=== PATIENT | female | born 1965 | race Two or more races ===

== ENCOUNTER 2023-01-02 11:03 | Emergency (ER) | payer MEDICAID ==
[~2023-01-02] VITALS: Ht 157.5 cm; Wt 85.0 kg
[2023-01-02 11:51] LABS: Basophils # (auto) 0 10 ^3/uL (0-0.2); Basophils % (auto) 0.5 % (0.0-2.0); Eosinophils # (auto) 0.1 10 ^3/uL (0-0.8); Eosinophils % (auto) 1.8 % (0.0-7.0); Hematocrit 38.6 % (36.0-46.0); Lymphocytes # (auto) 1.5 10 ^3/uL (0.4-5.4); Lymphocytes % (auto) 23.1 % (10.0-50.0); Mean Corpuscular Hemoglobin 28.5 pg (28.0-32.0); Mean Corpuscular Hgb Conc. 33.7 g/dL (32.0-36.0); Mean Corpuscular Volume 84.4 fL (80.0-100.0); Monocytes # (auto) 0.3 10 ^3/uL (0-1.3); Monocytes % (auto) 5.3 % (0.0-12.0); Neutrophils # (auto) 4.5 10 ^3/uL (1.6-8.6); Neutrophils % (auto) 69.3 % (37.0-80.0); Nucleated Red Blood Cells % 0.1 %; Red Blood Cells 4.57 10^6/uL (4.0-5.20); Red Cell Distribution Width 13.4 % (11.8-14.3); White Blood Cell 6.5 10^3/uL (4.4-10.8)
[2023-01-02 11:53] LABS: Urine Bacteria NONE SEEN /hpf (None Seen); Urine Blood Negative /uL (Negative); Urine Specific Gravity 1.004 (1.001-1.035); Urine WBC <1 /hpf (0 - 5)
[2023-01-02 11:59] LABS: Albumin 3.9 g/dL (3.4-5.0); Potassium 3.4 mmol/L (3.5-5.1)
[2023-01-02] MEDS ORDERED: ONDANSETRON HCL 4 MG/2 ML VIAL IV ONE (12:00)
[2023-01-02] MEDS ORDERED: PANTOPRAZOLE 40 MG/10 ML VIAL INJ IV ONE (12:00)
[2023-01-02] MEDS ORDERED: SODIUM CHLORIDE 0.9% 500 ML IVB ONE (12:00)
[2023-01-02 12:07] LABS: BUN/Creatinine Ratio 17.9 (10.0-20.0); Bilirubin, Total 1.2 mg/dL (0.2-1.0); Total Protein 7.4 g/dL (6.4-8.2)
[2023-01-02 12:26] LABS: INR 0.95 (0.9-1.15); Partial Thromboplastin Time 28.2 sec (24.6-33.4)
[2023-01-02 14:29] VITALS: BP 131/62
[2023-01-02] MEDS ORDERED: PANT40TA2 PO (15:06)
== END 2023-01-02 15:23 | disposition home or self-care (01) ==
LOC: ER 11:03
DX: R10.11 Right upper quadrant pain (principal); I10 Essential (primary) hypertension; Z98.51 Tubal ligation status
CPT/HCPCS: 36415; 74176; 76705; 80053; 81001; 83690; 85025; 85610; 85730; 96361; 96374; 99285; C9113; J7040

== ENCOUNTER 2024-01-17 13:07 | Emergency (ER) | payer MEDICAID ==
[~2024-01-17] VITALS: Ht 157.5 cm; Wt 82.7 kg
[~2024-01-17 13:07] MED LIST: PANT40TA2 PO
[2024-01-17 14:32] LABS: Urine Blood 3+ /uL (Negative); Urine Clarity Turbid (Clear); Urine Color Dark-Yellow (Yellow); Urine Protein, UAD 2+ (Negative); Urine Specific Gravity 1.012 (1.001-1.035); Urine Urobilinogen 2 mg/dL (Negative); Urine WBC 399 /hpf (0 - 5); Urine WBC Clumps PRESENT /hpf (None Seen); Urine pH 6.5 (5.0-9.0)
[2024-01-17 15:10] LABS: Urine Bacteria FEW /hpf (None Seen)
[2024-01-17] MEDS ORDERED: NITR-87 PO (15:28)
[2024-01-17 15:50] VITALS: BP 119/58; PULSE 59; RESP 18; TEMP 98.8; O2SAT 97
[2024-01-17] MEDS: cefTRIAXone SOD 1,000 MG VL IM ONE (15:55)
== END 2024-01-17 16:14 | disposition home or self-care (01) ==
LOC: ER 13:18
DX: N39.0 Urinary tract infection, site not specified (principal); I10 Essential (primary) hypertension; Z98.51 Tubal ligation status
CPT/HCPCS: 81001; 96372; 99283; J0696